=== PATIENT | female | born 1990 | race Caucasian/White ===

== ENCOUNTER 2017-10-03 14:28 | Emergency (ER) | payer OTHER ==
[2017-10-03 14:49] VITALS: BP 104/73
--- NOTE | 2017-10-03 14:56 | EKG REPORT ---
SEVERITY:- NORMAL ECG - SINUS RHYTHM : Confirmed by: Edson Cedillo MD 03-Oct-2017 14:56:03
[2017-10-03] MEDS ORDERED: ONDANSETRON 4 MG TAB.RAPDIS PO ONE (15:39)
--- NOTE | 2017-10-03 15:42 | ER Document Report ---
ED Syncope and Near Syncope - General Chief Complaint: Syncope Stated Complaint: HEADACHE Time Seen by Provider: 10/03/17 15:31 Mode of Arrival: Ambulatory Information source: Patient Notes: This 27-year-old female patient was in a walk for a chaya this morning. She flew in here from [place] last night. She drank a lot of alcohol last night and did not rehydrate today before going on this walk. She made it 8 miles but was feeling lightheaded and sweating heavily. She went back to her hotel where she blacked out in the hallway. She took an Uber ride here to the emergency room. She is complaining of a headache and not feeling well. She is feeling better at this time and is drinking fluids. TRAVEL OUTSIDE OF THE [place] IN LAST 30 DAYS: No - Related Data Allergies/Adverse Reactions: No Known Allergies Allergy (Verified 10/03/17 15:29) Past Medical History - General Information source: Patient - Social History Smoking Status: Never Smoker Cigarette use (# per day): No Chew tobacco use (# tins/day): No Smoking Education Provided: No Frequency of alcohol use: Social Drug Abuse: None Lives with: Other - Visiting from [place] Family History: Reviewed & Not Pertinent Patient has suicidal ideation: No Patient has homicidal ideation: No Pulmonary Medical History: Reports: Hx Asthma Psychiatric Medical History: Reports: Hx Anxiety, Hx Borderline Personality Disorder, Hx Depression Past Surgical History: Reports: Hx Tonsillectomy - Immunizations Hx Diphtheria, Pertussis, Tetanus Vaccination: Yes - 06/22/2010 Hx Pneumococcal Vaccination: 03/22/11 Review of Systems - Review of Systems Constitutional: No symptoms reported EENT: No symptoms reported Cardiovascular: No symptoms reported Respiratory: No symptoms reported Gastrointestinal: No symptoms reported Genitourinary: No symptoms reported Female Genitourinary: No symptoms reported Musculoskeletal: No symptoms reported Skin: No symptoms reported Hematologic/Lymphatic: No symptoms reported Neurological/Psychological: No symptoms reported Physical Exam - Vital signs Vitals: Temp Pulse Resp BP Pulse Ox 97.8 F 82 16 104/73 100 10/03/17 14:48 10/03/17 14:48 10/03/17 14:48 10/03/17 14:48 10/03/17 14:48 Interpretation: Normal - General General appearance: Appears well, Alert In distress: None - HEENT Head: Normocephalic, Atraumatic Eyes: Normal Pupils: PERRL Mouth/Lips: Other - Mouth is a little bit dry Neck: Normal - Respiratory Respiratory status: No respiratory distress Breath sounds: Normal - Cardiovascular Rhythm: Regular Heart sounds: Normal auscultation Murmur: No - Abdominal Inspection: Normal Bowel sounds: Normal Tenderness: Nontender - Back Back: Normal - Extremities General upper extremity: Normal inspection General lower extremity: Normal inspection - Neurological Neuro grossly intact: Yes - Psychological Associated symptoms: Normal affect, Normal mood - Skin Skin Temperature: Warm Skin Moisture: Dry Skin Color: Normal Course - Re-evaluation Re-evalutation: 10/03/17 17:54 Lab work shows a normal CK, concentrated urine with a lot of ketones. Patient states she is very hungry at this time. She will go back to her hotel room and drink lots of fluids and get something to eat. - Vital Signs Vital signs: Temp Pulse Resp BP Pulse Ox 97.8 F 82 16 104/73 100 10/03/17 14:48 10/03/17 14:48 10/03/17 14:48 10/03/17 14:48 10/03/17 14:48 - Laboratory Result Diagrams: 10/03/17 16:00 10/03/17 16:00 Laboratory results interpreted by me: 10/03/17 10/03/17 10/03/17 16:00 16:00 16:00 WBC 13.4 H Absolute Neutrophils 9.5 H Creatine Kinase 218 H Urine Protein 100 H Urine Ketones 80 H Urine Ascorbic Acid 40 H Discharge - Discharge Clinical Impression: Dehydration Hangover effect Qualifiers: Complication of substance-induced condition: uncomplicated Qualified Code(s): F10.120 - Alcohol abuse with intoxication, uncomplicated Condition: Stable Disposition: HOME, SELF-CARE Additional Instructions: Take the medication as dispensed for nausea if needed. Drink lots of fluids today. Rest indoors in a cool environment. Take ibuprofen for headache if needed. RETURN TO THE EMERGENCY ROOM IF ANY NEW OR WORSENING SYMPTOMS.
[2017-10-03 16:11] LABS: ABSOLUTE BASOPHILS # (AUTO) 0.1 10^3/uL (0.0-0.2); ABSOLUTE LYMPHOCYTES (AUTO) 2.6 10^3/uL (0.5-4.7); ABSOLUTE MONOCYTES (AUTO) 1.2 10^3/uL (0.1-1.4); ABSOLUTE NEUT (AUTO) 9.5 10^3/uL (1.7-8.2); BASOPHILS % (AUTO) 0.7 % (0-2); HEMATOCRIT 46.8 % (36.0-47.0); HEMOGLOBIN 15.5 g/dL (12.0-15.5); LYMPHOCYTES % (AUTO) 19.5 % (13-45); MEAN CORPUSCULAR HEMOGLOBIN 30.5 pg (27.0-33.4); MEAN CORPUSCULAR HGB CONC 33.2 g/dL (32.0-36.0); MEAN CORPUSCULAR VOLUME 92 fl (80-97); MONOCYTES % (AUTO) 9.3 % (3-13); PLATELET COUNT 343 10^3/uL (150-450); RED BLOOD COUNT 5.09 10^6/uL (3.72-5.28); RED CELL DISTRIBUTION WIDTH 13.3 % (11.5-14.0); SEGMENTED NEUTROPHILS % (AUTO) 70.5 % (42-78); TOTAL CELLS COUNTED % (AUTO) 100 %; WHITE BLOOD COUNT 13.4 10^3/uL (4.0-10.5)
[2017-10-03 16:26] LABS: ALANINE AMINOTRANSFERASE 31 U/L (9-52); ALBUMIN 4.9 g/dL (3.5-5.0); ALKALINE PHOSPHATASE 60 U/L (38-126); ANION GAP 13 (5-19); ASPARTATE AMINO TRANSFERASE 29 U/L (14-36); BILIRUBIN,DIRECT 0.2 mg/dL (0.0-0.4); BILIRUBIN,TOTAL 0.8 mg/dL (0.2-1.3); BLOOD UREA NITROGEN 13 mg/dL (7-20); CALCIUM 10.2 mg/dL (8.4-10.2); CARBON DIOXIDE 28 mmol/L (22-30); CHLORIDE 102 mmol/L (98-107); CREATINE KINASE 218 U/L (30-135); GLUCOSE 90 mg/dL (75-110); POTASSIUM 4.6 mmol/L (3.6-5.0); SODIUM 143.2 mmol/L (137-145); TOTAL PROTEIN 7.6 g/dL (6.3-8.2)
[2017-10-03 17:48] LABS: APPEARANCE,URINE SLIGHTLY-CLOUDY; BILIRUBIN,URINE NEGATIVE (NEGATIVE); COLOR,URINE YELLOW; GLUCOSE, URINE NEGATIVE (NEGATIVE); KETONES,URINE 80 mg/dL (NEGATIVE); LEUKOCYTE ESTERASE,URINE NEGATIVE (NEGATIVE); NITRITE,URINE NEGATIVE (NEGATIVE); PROTEIN,URINE 100 mg/dL (NEGATIVE); URINE SPECIFIC GRAVITY 1.034; UROBILINOGEN,URINE NEGATIVE mg/dL (<2.0)
[2017-10-03] MEDS ORDERED: ONDANSETRON ODT 4 MG TAB (6 TAB/ER DISP) PO PRN (17:54)
== END 2017-10-03 18:01 | disposition home or self-care (01) ==
LOC: ER 14:28
DX: E86.0 Dehydration (principal); F10.120 Alcohol abuse with intoxication, uncomplicated; R55 Syncope and collapse; R51 Headache
CPT/HCPCS: 93005; 99284; 36415; 82550; 85025; 81025; 80053; 81001; 93010; S0119